=== PATIENT | male | born 1975 | race Caucasian/White ===

== ENCOUNTER 2023-08-30 16:59 | Inpatient (IN) | payer BC ==
[2023-08-30 18:18] VITALS: BMI 19.8
[2023-08-30] MEDS ORDERED: MAG HYDROX/AL HYDROX/SIMETH 30 ML UNIT-DOSE CUP PO PRN (20:00)
[2023-08-30] MEDS ORDERED: MAGNESIUM HYDROX 2400MG/30ML ORAL SUSPENSION 30 ML CUP PO PRN (20:00)
[2023-08-30] MEDS ORDERED: DOCUSATE SODIUM 100 MG CAPSULE (FP) PO PRN (20:00)
[2023-08-30] MEDS ORDERED: P-EPHED 60MG/TRIPROLIDI 2.5MG TABLET PO PRN (20:00)
[2023-08-30] MEDS ORDERED: BENZOCAINE/MENTHOL (CHLORASEPTIC ) LOZENGE MM PRN (20:00)
[2023-08-30] MEDS ORDERED: BENZONATATE 200 MG CAPSULE PO PRN (20:00)
[2023-08-30] MEDS ORDERED: IBUPROFEN 600 MG TABLET (FP) PO PRN (20:00)
[2023-08-30] MEDS ORDERED: POLYETHYLENE GLYCOL (HEALTHYLAX) 3350 17 GM PACKET PO PRN (20:00)
[2023-08-30] MEDS ORDERED: NALOXONE HCL 0.4 MG/ML VIAL IM PRN (20:00)
[2023-08-30] MEDS ORDERED: LOPERAMIDE HCL 2 MG CAPSULE PO PRN (20:00)
[2023-08-30] MEDS ORDERED: BISACODYL 5 MG TABLET.DR (FP) PO PRN (20:00)
[2023-08-30] MEDS ORDERED: NALOXONE (NARCAN) HCL 4 MG/0.1 ML SPRAY NS PRN (20:00)
[2023-08-30] MEDS ORDERED: NICOTINE POLACRILEX 2 MG GUM BUC PRN (20:00)
[2023-08-30] MEDS ORDERED: ACETAMINOPHEN 325 MG TABLET (FP) PO PRN (20:00)
[2023-08-30] MEDS ORDERED: NICOTINE POLACRILEX 2 MG LOZENGE BC PRN (20:00)
[2023-08-30] MEDS ORDERED: guaiFENesin 600 MG TABLET.ER (FP) PO PRN (20:00)
[2023-08-30] MEDS ORDERED: ALBUTEROL SO4 HFA INHALER IH PRN (20:08)
[2023-08-30] MEDS: BACITRACIN 0.9 GM PACKET TP SCH (22:43)
[2023-08-30] MEDS: MELATONIN 5 MG TABLETS PO SCH (22:59)
[2023-08-30] MEDS: THIAMINE 100 MG TABLET PO SCH (22:59)
[2023-08-31] MEDS ORDERED: TUBERCULIN PPD 5 TU/0.1ML SYRINGE (IN PATIENT USE ONLY) ID ONE (00:01)
[2023-08-31] MEDS ORDERED: TUBERCULIN PPD 5 TU/0.1ML VIAL ID ONE (09:56)
[2023-08-31] MEDS: methaDONE 80 MG, methaDONE 10 MG PO SCH (10:33)
[2023-08-31] MEDS: PRENATAL VITAMINS W/ FOLIC ACID TABLET (FP) PO SCH (10:34)
[2023-08-31] MEDS: TUBERCULIN PPD 5 TU/0.1ML SYRINGE (IN PATIENT USE ONLY) ID ONE (10:37)
[2023-08-31] MEDS: methaDONE HCL 40 MG DISPERSABLE TABLET PO SCH (10:38)
[2023-08-31 13:18] LABS: HEMATOCRIT 36.8 % (35.4-49); HEMOGLOBIN 12.4 GM/dL (11.7-16.9); MCH 29.5 pg (25.7-33.7); MCHC 33.6 g/dl (32.0-35.9); MEAN CELL VOLUME 87.8 fl (80-96); MEAN PLT VOLUME 9.3 fl (7.5-11.1); PLATELET COUNT 134 10^3/uL (134-434); RBC 4.19 M/mm3 (4.00-5.60); RDW 13.5 % (11.9-15.9); WHITE BLOOD COUNT 3.2 K/mm3 (4.0-10.0)
[2023-08-31 13:26] LABS: POTASSIUM 4.6 mmol/L (3.5-5.1)
[2023-08-31 13:42] LABS: BLOOD UREA NITROGEN 13.7 mg/dL (7-18); CALCIUM 9.1 mg/dL (8.5-10.1)
[2023-08-31 13:43] LABS: ALBUMIN 3.2 g/dl (3.4-5.0)
[2023-08-31 13:46] LABS: BILIRUBIN,TOTAL 0.6 mg/dL (0.2-1); TOT PROT 6.9 g/dl (6.4-8.2)
[2023-08-31 13:47] LABS: CREATININE 0.6 mg/dL (0.55-1.3)
[2023-08-31] MEDS: QUEtiapine FUMARATE 50 MG TABLET PO SCH (21:09)
[2023-09-01] MEDS ORDERED: QUEtiapine FUMARATE 25 MG TABLET ONE (20:51)
[2023-09-02 17:16] LABS: PH,URINE 7.5 (5.0-8.0); URINE APPEARANCE CLEAR; URINE BILIRUBIN NEGATIVE (NEGATIVE); URINE COLOR YELLOW; URINE GLUCOSE (UA) NEGATIVE (NEGATIVE); URINE KETONE NEGATIVE (NEGATIVE); URINE LEUK ESTERASE NEGATIVE (NEGATIVE); URINE NITRITE NEGATIVE (NEGATIVE); URINE PROTEIN NEGATIVE (NEGATIVE); URINE UROBILINOGEN 0.2 mg/dL (0.2-1.0)
[2023-09-05] MEDS: hydrOXYzine PAMOATE 25 MG CAPSULE (FP) PO PRN (21:08)
[2023-09-05] MEDS: BACLOFEN 10 MG TABLET (FP) PO SCH (21:08)
[2023-09-05] MEDS: TOLNAFTATE 1% CREAM 15 GM TUBE TP SCH (21:09)
[2023-09-06] MEDS: ASPIRIN 325 MG ENTERIC COATED TABLET (FP) PO ONE (10:27)
[2023-09-10] MEDS: diphenhydrAMINE HCL 25 MG CAPSULE (FP) PO ONE (22:53)
[2023-09-11] MEDS: IBUPROFEN 400 MG TABLET (FP) PO PRN (09:43)
[2023-09-11] MEDS: GABAPENTIN 100 MG CAPSULE PO SCH (14:19)
[2023-09-11] MEDS: QUEtiapine FUMARATE 100 MG TABLET (FP) PO SCH (21:27)
[2023-09-12] MEDS: AMOX TR/POT CLAV 500MG/125MG TABLETS (FP) PO SCH (17:23)
[2023-09-12] MEDS: GABAPENTIN 100 MG CAPSULE PO SCH (21:49)
[2023-09-14] MEDS: POVIDONE-IODINE 10% SOLN 118 ML BOTTLE TP SCH (13:16)
[2023-09-14] MEDS: AMMONIUM LACTATE 12% LOTION 225 GM BOTTLE TP PRN (13:36)
[2023-09-15 11:33] LABS: ALBUMIN 3.6 g/dl (3.4-5.0)
[2023-09-15 11:36] LABS: BILIRUBIN,DIRECT 0.2 mg/dL (0.0-0.2)
[2023-09-15 11:38] LABS: BILIRUBIN,TOTAL 0.5 mg/dL (0.2-1); TOT PROT 7.5 g/dl (6.4-8.2)
[2023-09-16 06:44] VITALS: RESP 18
[2023-09-17 06:54] VITALS: BP 149/64; PULSE 72; TEMP 96
[2023-09-17] MEDS: methaDONE 80 MG, methaDONE 10 MG PO ONE (10:40)
== END 2023-09-17 12:12 | disposition home or self-care (01) | DRG 772 ==
LOC: YASAS 16:59 → Y5N 20:28
PROVIDERS: ADMIT Allergy & Immunology; ATTEND Psychiatry & Neurology Pain Medicine
PROC: HZ42ZZZ Group Counseling for Substance Abuse Treatment, Cognitive-Behavioral (ICD-10-PCS; principal; 2023-08-30)
DX: F14.20 Cocaine dependence, uncomplicated (principal); F11.20 Opioid dependence, uncomplicated; F12.20 Cannabis dependence, uncomplicated; F17.210 Nicotine dependence, cigarettes, uncomplicated; F19.282 Other psychoactive substance dependence with psychoactive substance-induced sleep disorder; F19.280 Other psychoactive substance dependence with psychoactive substance-induced anxiety disorder; F19.24 Other psychoactive substance dependence with psychoactive substance-induced mood disorder; B35.3 Tinea pedis; B35.1 Tinea unguium; K02.9 Dental caries, unspecified; R20.0 Anesthesia of skin; Z86.59 Personal history of other mental and behavioral disorders; Z56.0 Unemployment, unspecified; Z59.00 Homelessness unspecified
CPT/HCPCS: 36415; 80053; 80076; 80305; 81003; 85027; 86780; 87811; 93005; 93010; J0475

== ENCOUNTER 2023-09-06 10:44 | Emergency (ER) | payer BC ==
[2023-09-06 10:52] VITALS: BP 107/77; PULSE 62; RESP 18; TEMP 97.5; BMI 20.9
[2023-09-06] MEDS ORDERED: ACETAMINOPHEN INJECTION 100 ML IVPB ONE (11:38)
[2023-09-06 11:42] LABS: BASO % 0.7 % (0-2.0); EOS % 3.9 % (0-4.5); HEMATOCRIT 38.1 % (35.4-49); HEMOGLOBIN 12.9 GM/dL (11.7-16.9); MCH 29.8 pg (25.7-33.7); MCHC 33.9 g/dl (32.0-35.9); MEAN CELL VOLUME 87.8 fl (80-96); MEAN PLT VOLUME 8.9 fl (7.5-11.1); MONO % 12.5 % (3.8-10.2); NEUT % 50.9 % (42.8-82.8); PLATELET COUNT 144 10^3/uL (134-434); RBC 4.34 M/mm3 (4.00-5.60); RDW 13.5 % (11.9-15.9)
[2023-09-06] MEDS: ACETAMINOPHEN 1000 MG/100 ML BAG IVPB ONE (11:50)
[2023-09-06] MEDS: SODIUM CHLORIDE 0.9% 1000 ML INFUS.BAG IV ONE (11:50)
[2023-09-06 12:02] LABS: URINE APPEARANCE CLEAR; URINE BILIRUBIN NEGATIVE (NEGATIVE); URINE COLOR DK YELLOW; URINE GLUCOSE (UA) NEGATIVE (NEGATIVE); URINE KETONE TRACE (NEGATIVE); URINE LEUK ESTERASE NEGATIVE (NEGATIVE); URINE NITRITE NEGATIVE (NEGATIVE); URINE PROTEIN NEGATIVE (NEGATIVE); URINE UROBILINOGEN 0.2 mg/dL (0.2-1.0)
[2023-09-06 12:41] LABS: ALBUMIN 3.4 g/dl (3.4-5.0); BILIRUBIN,TOTAL 0.5 mg/dL (0.2-1); CALCIUM 9.1 mg/dL (8.5-10.1); CREATININE 0.7 mg/dL (0.55-1.3); MAGNESIUM 1.8 mg/dL (1.8-2.4); PHOSPHOROUS 3.3 mg/dL (2.5-4.9); POTASSIUM 4.4 mmol/L (3.5-5.1); TOT PROT 7.3 g/dl (6.4-8.2)
== END 2023-09-06 14:05 | disposition home or self-care (01) ==
LOC: JER 10:44
PROC: 3E033NZ Introduction of Analgesics, Hypnotics, Sedatives into Peripheral Vein, Percutaneous Approach (ICD-10-PCS; principal; 2023-09-06)
DX: R20.0 Anesthesia of skin (principal); R20.2 Paresthesia of skin
CPT/HCPCS: 36415; 70450-TC; 70486-TC; 80053; 81003; 82962; 83735; 84100; 84443; 85025; 87086; 93005; 93010; 99285-25; J0131